=== PATIENT | female | born 1980 | race Caucasian/White ===

== ENCOUNTER 2018-07-28 01:07 | Emergency (ER) | payer MEDICAID ==
[~2018-07-28] VITALS: Ht 177.8 cm; Wt 108.9 kg
[2018-07-28 01:27] VITALS: BP_SYST 124
[2018-07-28 01:41] LABS: BILIRUBIN,URINE 1+ (NEGATIVE); BLOOD, URINE 3+ (NEGATIVE); CLARITY/URINE HAZY (CLEAR); COLOR,URINE YELLOW (YELLOW); GLUCOSE,URINE NEGATIVE (NEGATIVE); KETONES,URINE TRACE (NEGATIVE); LEUKOCYTE ESTERASE ,URINE 1+ (NEGATIVE); NITRITE, URINE NEGATIVE (NEGATIVE); PROTEIN URINE 2+ (NEGATIVE)
[2018-07-28] MEDS ORDERED: SULFAMETHOXAZOLE/TRIMETHOPR DS 1 TABLET PO ONE (01:45)
[2018-07-28] MEDS ORDERED: PHENAZOPYRIDINE HCL 100 MG TABLET PO ONE (01:45)
[2018-07-28 01:50] VITALS: BP_SYST 127
[2018-07-28 01:57] LABS: BACTERIA,URINE FEW /HPF (None Seen); RBC,URINE >100 /HPF (0-3)
== END 2018-07-28 01:50 | disposition home or self-care (01) ==
LOC: SED 01:07
DX: N39.0 Urinary tract infection, site not specified (principal); R03.0 Elevated blood-pressure reading, without diagnosis of hypertension
CPT/HCPCS: 81000-TC; 87086; 87186-TC; 99284

== ENCOUNTER 2018-08-18 21:54 | Emergency (ER) | payer MEDICAID ==
[~2018-08-18] VITALS: Ht 177.8 cm; Wt 104.3 kg
[2018-08-18 21:58] VITALS: BP_SYST 149
[2018-08-18 22:23] LABS: BILIRUBIN,URINE NEGATIVE (NEGATIVE); BLOOD, URINE NEGATIVE (NEGATIVE); COLOR,URINE YELLOW (YELLOW); GLUCOSE,URINE NEGATIVE (NEGATIVE); KETONES,URINE NEGATIVE (NEGATIVE); LEUKOCYTE ESTERASE ,URINE NEGATIVE (NEGATIVE); NITRITE, URINE NEGATIVE (NEGATIVE); PH,URINE 5.5 (5.0-8.0); PROTEIN URINE NEGATIVE (NEGATIVE); UROBILINOGEN,URINE 0.2 (0.2-1.0)
[2018-08-18 22:25] LABS: CLARITY/URINE CLEAR (CLEAR)
[2018-08-18] MEDS ORDERED: metroNIDAZOLE 500 MG TABLET PO ONE (23:00)
[2018-08-18 23:20] VITALS: BP_SYST 141
[2018-08-21 07:10] LABS: CHLAMYDIA TRACHOMATIS NAA Negative (Negative); NEISSERIA GONORRHOEAE NAA Negative (Negative)
== END 2018-08-18 23:20 | disposition home or self-care (01) ==
LOC: SED 21:54
DX: N76.0 Acute vaginitis (principal); B96.89 Other specified bacterial agents as the cause of diseases classified elsewhere; R03.0 Elevated blood-pressure reading, without diagnosis of hypertension
CPT/HCPCS: 81003; 81025; 82962; 87210-TC; 87491; 87591; 99284

== ENCOUNTER 2019-07-30 23:45 | Emergency (ER) | payer MEDICAID ==
[~2019-07-30] VITALS: Ht 177.8 cm; Wt 90.7 kg
[2019-07-30 23:50] VITALS: BP_SYST 145
--- NOTE | 2019-07-30 23:54 | NUR ---
Patient to ER bed 7 to gown for evaluation. Side rails up.
--- NOTE | 2019-07-31 | NUR ---
Pt came to the ED for L hand pain from the wrist to the forearm. Reported pain started 2 weeks ago. Denies trauma. Reports taking ibuprofen with minimal relief. Denies n/v/d or fever. No other complaints/injuries noted. Will cont. to monitor.
--- NOTE | 2019-07-31 00:10 | NUR ---
ER at bedside examining patient.
[2019-07-31] MEDS ORDERED: IBUPROFEN 600 MG TABLET PO ONE (00:45)
[2019-07-31 01:05] VITALS: BP_SYST 145
--- NOTE | 2019-07-31 01:05 | NUR ---
Patient given written and verbal discharge instructions and verbalizes understanding. ER MD Dr. Marin discussed with patient the results and treatment provided. Patient in stable condition. ID arm band removed. Rx of flexeril and motrin given. Patient educated on pain management and to follow up with PMD. Pain Scale 0/10. Opportunity for questions provided and answered. Medication side effect fact sheet provided.
== END 2019-07-31 01:05 | disposition home or self-care (01) ==
LOC: SED 23:45
DX: M25.532 Pain in left wrist (principal)
CPT/HCPCS: 99283

== ENCOUNTER 2020-03-21 08:22 | Emergency (ER) | payer MEDICAID ==
[~2020-03-21] VITALS: Ht 170.2 cm; Wt 104.3 kg
[2020-03-21 08:27] VITALS: BP_SYST 131
--- NOTE | 2020-03-21 08:30 | NUR ---
Patient to ER bed 3 to gown for evaluation. Side rails up. Report given to Zeny.
--- NOTE | 2020-03-21 08:32 | NUR ---
Patient arrived in the ED c/o dysuria and frequency that started a week ago. Patient denied any chest pain or shortness of breath. Denied any fevers, chills, nausea, or vomiting. Patient is alert and oriented x4, respirations even and unlabored, speaking in full sentences, ambulating with a steady gait. VSS, pain level 1/10. Informed of approximate wait time. Instructed to notify ED staff for any changes in condition or worsening of symptoms. Patient verbalized understanding.
--- NOTE | 2020-03-21 08:35 | NUR ---
ER Dr. Carter at bedside examining patient.
--- NOTE | 2020-03-21 08:46 | NUR ---
data center technician at bedside as ordered by Dr. Carter collecting blood specimen. Patient tolerated the procedure well.
--- NOTE | 2020-03-21 09:25 | NUR ---
ER Dr. Carter at bedside re-examining patient.
[2020-03-21] MEDS ORDERED: KETOROLAC TROMETHAMINE 30 MG VIAL IM ONE (10:15)
[2020-03-21 10:23] LABS: BASOPHILS # (AUTO) 0.1 K/uL (0.0-0.2); EOSINOPHILS # (AUTO) 0.1 K/uL (0.0-0.4); EOSINOPHILS % (AUTO) 1.4 % (0.0-4.0); HEMATOCRIT 39.5 % (36-48); HEMOGLOBIN 13.3 g/dL (12.0-16.0); LYMPHOCYTES # (AUTO) 2.8 K/uL (1.0-5.5); LYMPHOCYTES % (AUTO) 31.6 % (20.5-51.5); MEAN CORPUSCULAR HEMOGLOBIN 31 pg (27-31); MEAN CORPUSCULAR HGB CONC 34 % (32-36); MEAN CORPUSCULAR VOLUME 92 fL (79.0-98.0); MONOCYTES # (AUTO) 0.7 K/uL (0.0-1.0); MONOCYTES % (AUTO) 7.9 % (1.7-9.3); NEUTROPHILS # (AUTO) 5.2 K/uL (1.8-7.7); NEUTROPHILS % (AUTO) 58.1 % (40.0-70.0); PLATELET COUNT (AUTO) 239 K/uL (130-430); RED BLOOD CELL COUNT(AUTO) 4.32 MIL/uL (4.2-6.2); RED CELL DISTRIBUTION WIDTH 13.9 % (9.0-15.0); WHITE BLOOD COUNT (AUTO) 8.9 K/uL (4.8-10.8)
[2020-03-21 10:34] LABS: CALCIUM 8.9 mg/dL (8.4-11.0); CREATININE 0.82 mg/dL (0.55-1.30); POTASSIUM 4.4 mmol/L (3.5-5.1)
[2020-03-21 10:39] LABS: ALBUMIN 3.7 g/dL (3.4-4.8); TOTAL BILIRUBIN 0.4 mg/dL (0.0-1.0)
[2020-03-21 10:43] VITALS: BP_SYST 131
--- NOTE | 2020-03-21 10:43 | NUR ---
Patient given written and verbal discharge instructions and verbalizes understanding. ER MD discussed with patient the results and treatment provided. Patient in stable condition. ID arm band removed. Rx of Cephalexin and Pyridium given. Patient educated on pain management and to follow up with PMD. Pain Scale 0/10. Opportunity for questions provided and answered. Medication side effect fact sheet provided.
== END 2020-03-21 10:43 | disposition home or self-care (01) ==
LOC: SED 08:22
DX: N39.0 Urinary tract infection, site not specified (principal)
CPT/HCPCS: 36415; 80053; 81002; 85025; 96372; 99283; J1885

== ENCOUNTER 2021-01-08 01:12 | Emergency (ER) | payer MEDICAID ==
[~2021-01-08] VITALS: Ht 177.8 cm; Wt 88.5 kg
[2021-01-08 01:25] VITALS: BP_SYST 136
== END 2021-01-08 02:20 | disposition home or self-care (01) ==
LOC: SED 01:12
DX: M77.8 Other enthesopathies, not elsewhere classified (principal); Z87.891 Personal history of nicotine dependence
CPT/HCPCS: 99283

== ENCOUNTER 2023-12-25 19:14 | Emergency (ER) | payer MEDICAID ==
[~2023-12-25] VITALS: Ht 177.8 cm; Wt 90.7 kg
[2023-12-25 19:37] VITALS: BP_SYST 126; PULSE 96; RESP 16; TEMP 98.6; O2SAT 96
[2023-12-25 20:14] LABS: BILIRUBIN,URINE NEGATIVE (NEGATIVE); BLOOD, URINE 3+ (NEGATIVE); CLARITY/URINE SL CLOUDY (CLEAR); COLOR,URINE YELLOW (YELLOW); GLUCOSE,URINE NEGATIVE (NEGATIVE); KETONES,URINE TRACE (NEGATIVE); LEUKOCYTE ESTERASE ,URINE 2+ (NEGATIVE); NITRITE, URINE POSITIVE (NEGATIVE); PROTEIN URINE 2+ (NEGATIVE); UROBILINOGEN,URINE 0.2 (0.2-1.0)
[2023-12-25 20:25] LABS: BASOPHILS # (AUTO) 0.1 K/uL (0.0-0.2); BASOPHILS % (AUTO) 0.7 % (0.0-2.0); EOSINOPHILS # (AUTO) 0.1 K/uL (0.0-0.4); EOSINOPHILS % (AUTO) 0.9 % (0.0-4.0); HEMATOCRIT 40.2 % (36-48); HEMOGLOBIN 13.7 g/dL (12.0-16.0); LYMPHOCYTES # (AUTO) 2.3 K/uL (1.0-5.5); LYMPHOCYTES % (AUTO) 16.9 % (20.5-51.5); MEAN CORPUSCULAR HEMOGLOBIN 30 pg (27-31); MEAN CORPUSCULAR HGB CONC 34 % (32-36); MEAN CORPUSCULAR VOLUME 88 fL (79.0-98.0); MONOCYTES % (AUTO) 7.6 % (1.7-9.3); NEUTROPHILS # (AUTO) 10.1 K/uL (1.8-7.7); NEUTROPHILS % (AUTO) 73.9 % (40.0-70.0); PLATELET COUNT (AUTO) 379 K/uL (130-430); RED BLOOD CELL COUNT(AUTO) 4.56 MIL/uL (4.2-6.2); RED CELL DISTRIBUTION WIDTH 13.9 % (9.0-15.0); WHITE BLOOD COUNT (AUTO) 13.7 K/uL (4.8-10.8)
[2023-12-25 20:32] LABS: BACTERIA,URINE MANY /HPF (None Seen); MUCUS,URINE None Seen /LPF (None Seen); RBC,URINE 20-50 /HPF (0-3); WBC,URINE 50-80 /HPF (0-3); YEAST,URINE Moderate /HPF (None Seen)
[2023-12-25] MEDS ORDERED: NITR-85 PO (20:37)
[2023-12-25] MEDS ORDERED: PHEN-726 PO (20:37)
[2023-12-25] MEDS: cefTRIAXone 1 GM in LIDOCAINE 1%, 20 ML MDV 2.1 ML IM ONE (20:45)
[2023-12-25 20:51] VITALS: BP_SYST 126; PULSE 96; RESP 16; TEMP 98.6; O2SAT 96
[2023-12-25 20:54] LABS: CALCIUM 8.9 mg/dL (8.4-11.0); CREATININE 0.89 mg/dL (0.55-1.30); POTASSIUM 3.8 mmol/L (3.5-5.1)
== END 2023-12-25 20:51 | disposition home or self-care (01) ==
LOC: SED 19:14
DX: N12 Tubulo-interstitial nephritis, not specified as acute or chronic (principal); R30.0 Dysuria; Z79.899 Other long term (current) drug therapy
CPT/HCPCS: 99283; 80048; 81001; 85025; 87086; 36415; 81025; 96372; 83605; 82397; 81000; 81015; J0696; J2001